=== PATIENT | female | born 1940 | race Caucasian/White ===

== ENCOUNTER → 2021-11-10 | Outpatient (CLI) | payer MEDICARE, BC, OTHER | LOC: M PLAIMG 12:21 | DX: S82.002A Unspecified fracture of left patella, initial encounter for closed fracture (principal); M25.561 Pain in right knee ==

== ENCOUNTER → 2023-03-21 | Outpatient (CLI) | payer MEDICARE, BC, OTHER ==
[~2023-03-21] MED LIST: ISOVUE-370 76% 100ML VIAL ONE
== END ==
LOC: M PLAIMG 13:24
PROVIDERS: ATTEND Surgery Trauma Surgery
DX: K43.2 Incisional hernia without obstruction or gangrene (principal)
CPT/HCPCS: 74177; Q9967

== ENCOUNTER → 2023-11-03 | Outpatient (CLI) | payer MEDICARE, BC, OTHER | LOC: M WUC 12:39 | PROVIDERS: ATTEND Physician Assistant | DX: R07.82 Intercostal pain (principal) ==